=== PATIENT | female | born 1995 | race Caucasian/White ===

== ENCOUNTER → 2017-04-06 18:20 | Emergency (ER) | payer OTHER ==
[~2017-04-06 18:20] MED LIST: Ibuprofen TAB* 600 MG PO ONE
[2017-04-06 18:36] VITALS: BP 99/65
--- NOTE | 2017-04-14 15:10 | ED ---
Bridger Ventura Angela, scribed for Michael Clayton MD on 04/06/17 at 1914 . Throat Pain/Nasal Congestion - HPI Summary HPI Summary: This pt is a 21 y/o female presenting to [facility] with 2 days of sore throat. She rates her pain 3 out of 10 in severity. Pt denies fever, rhinorrhea, or any other symptoms. No PMHx of strep throat, URI. - History of Current Complaint Chief Complaint: EDThroatPain Time Seen by Provider: 04/06/17 18:25 Hx Obtained From: Patient Onset/Duration: Lasting Days Severity: Mild - 3 out of 10 in severity. Associated Signs And Symptoms: Negative: Wheezing, Hoarseness, Nasal Discharge Cough: None - Allergies/Home Medications Allergies/Adverse Reactions: Allergies Allergy/AdvReac Type Severity Reaction Status Date / Time Cefaclor [From Ceclor] Allergy Swelling Verified 04/29/16 16:23 Cefprozil [From Cefzil] Allergy Swelling Verified 04/29/16 16:23 Erythromycin Allergy Swelling Verified 04/29/16 16:23 Vancomycin Allergy Rash Verified 04/29/16 16:23 PMH/Surg Hx/FS Hx/Imm Hx Endocrine/Hematology History: Denies: Hx Anticoagulant Therapy, Hx Diabetes, Hx Thyroid Disease Cardiovascular History: Denies: Hx Hypercholesterolemia, Hx Hypertension, Hx Pacemaker/ICD, Hx Peripheral Vascular Disease Respiratory History: Denies: Hx Asthma, Hx Chronic Obstructive Pulmonary Disease (COPD) History: Denies: Hx Renal Disease Musculoskeletal History: Denies: Hx Arthritis, Hx Rheumatoid Arthritis, Hx Osteoporosis Sensory History: Denies: Hx Cataracts, Hx Contacts or Glasses, Hx Glaucoma Opthamlomology History: Denies: Hx Cataracts, Hx Contacts or Glasses, Hx Glaucoma Neurological History: Denies: Hx Dementia, Hx Seizures Psychiatric History: Denies: Hx Anxiety, Hx Depression, Hx Substance Abuse Infectious Disease History: No Infectious Disease History: Denies: Hx Hepatitis, Hx Human Immunodeficiency Virus (HIV), Traveled Outside the [place] in Last 30 Days - Family History Known Family History: Positive: None - Social History Alcohol Use: Occasionally Substance Use Type: Reports: None Hx Tobacco Use: No Smoking Status (MU): Never Smoked Tobacco Review of Systems Negative: Fever, Chills Negative: Erythema Positive: Sore Throat Negative: Chest Pain Negative: Shortness Of Breath, Cough Negative: Abdominal Pain, Vomiting, Nausea Negative: dysuria, hematuria Negative: Myalgia, Edema Negative: Rash Neurological: Other - NEGATIVE: dizziness. All Other Systems Reviewed And Are Negative: Yes Physical Exam - Summary Physical Exam Summary: Constitutional: Well-developed, Well-nourished, Alert. (-) Distressed Skin: Warm, Dry HENT: Normocephalic; Atraumatic. Exudate on the right tonsil. Eyes: Conjunctiva normal Neck: Musculoskeletal ROM normal neck. (-) JVD, (-) Stridor, (-) Tracheal deviation Cardio: Rhythm regular, rate normal, Heart sounds normal; Intact distal pulses; The pedal pulses are 2+ and symmetric. Radial pulses are 2+ and symmetric. (-) Murmur Pulmonary/Chest wall: Effort normal. (-) Respiratory distress, (-) Wheezes, (-) Rales Abd: Soft, (-) Tenderness, (-) Distension, (-) Guarding, (-) Rebound Musculoskeletal: (-) Edema Lymph: (-) Cervical adenopathy Neuro: Alert, Oriented x3 Psych: Mood and affect Normal Triage Information Reviewed: Yes Vital Signs On Initial Exam: Initial Vitals Temp Pulse Resp BP Pulse Ox 98.6 F 70 18 99/65 98 04/06/17 18:31 04/06/17 18:31 04/06/17 18:31 04/06/17 18:31 04/06/17 18:31 Vital Signs Reviewed: Yes Diagnostics - Vital Signs Vital Signs Temp Pulse Resp BP Pulse Ox 04/06/17 18:31 98.6 F 70 18 99/65 98 - Laboratory Lab Results: Lab Results 04/06/17 Range/Units 18:34 Group A Strep Rapid Negative (Negative) Lab Statement: Any lab studies that have been ordered have been reviewed, and results considered in the medical decision making process. EENT Course/Dx - Course Course Of Treatment: Pt will be discharged with dx of pharyngitis, pending cultures. - Diagnoses Provider Diagnoses: Pharyngitis Discharge - Discharge Plan Condition: Stable Disposition: HOME Patient Education Materials: Pharyngitis (ED) Forms: *Work Release Referrals: Dk Adams MD [Primary Care Provider] - Additional Instructions: Please follow up with your primary care provider. RETURN TO THE EMERGENCY DEPARTMENT FOR CHANGING OR WORSENING SYMPTOMS. The documentation as recorded by the Bridger guzman Angela accurately reflects the service I personally performed and the decisions made by me, Michael Clayton MD.
== END | disposition home or self-care (01) ==
LOC: ED 18:20
DX: J02.9 Acute pharyngitis, unspecified (principal)
CPT/HCPCS: 87651; 99281

== ENCOUNTER 2018-02-18 13:48 | Emergency (ER) | payer OTHER ==
[2018-02-18 14:42] VITALS: BP 123/72
== END 2018-02-18 15:37 | disposition left against medical advice (07) ==
LOC: UCCORT 13:48
DX: J39.2 Other diseases of pharynx (principal); Z53.21 Procedure and treatment not carried out due to patient leaving prior to being seen by health care provider
CPT/HCPCS: 87651

== ENCOUNTER 2018-07-04 04:48 | Emergency (ER) | payer OTHER ==
[2018-07-04] MEDS ORDERED: Ketorolac INJ* 30 MG/ML 1 ML VIAL IV ONE (05:00)
[2018-07-04] MEDS ORDERED: NS 0.9% 1000 ML* 1,000 ML IV ONE (05:00)
--- NOTE | 2018-07-04 05:00 | ED ---
GI/ HPI - HPI Summary HPI Summary: This patient is a 23 year old F presenting to [facility] accompanied by her mother with a chief complaint of bilateral flank pain. Pt states she woke up this morning at 0100 with "cold sweats" and pain. The patient rates the pain 4/10 in severity. Patient reports dysuria, vaginal bleeding, and hematuria. Patient denies n/v, fever, and chills. She states she is on BC and is not supposed to begin her menstural cycle for two weeks. - History of Current Complaint Chief Complaint: EDUrogenitalProblems Time Seen by Provider: 07/04/18 04:51 Stated Complaint: FLANK PAIN Hx Obtained From: Patient Hx Last Menstrual Period: 3 weeks Onset/Duration: Started Hours Ago, Still Present Timing: Constant, Lasting Hours Severity: Moderate Current Severity: Moderate Pain Intensity: 4 Location of Pain: Flank Pain Radiates to: Flank Associated Signs and Symptoms: Positive: Flank Pain. Negative: Fever, Chills - Allergy/Home Medications Allergies/Adverse Reactions: Allergies Allergy/AdvReac Type Severity Reaction Status Date / Time cefprozil Allergy Severe Swelling Verified 07/04/18 04:53 vancomycin Allergy Intermediate Rash Verified 07/04/18 04:53 cefaclor [From Ceclor] Allergy Swelling Verified 07/04/18 04:53 erythromycin base Allergy Swelling Verified 07/04/18 04:53 PMH/Surg Hx/FS Hx/Imm Hx Endocrine/Hematology History: Denies: Hx Anticoagulant Therapy, Hx Diabetes, Hx Thyroid Disease Cardiovascular History: Denies: Hx Hypercholesterolemia, Hx Hypertension, Hx Pacemaker/ICD, Hx Peripheral Vascular Disease Respiratory History: Denies: Hx Asthma, Hx Chronic Obstructive Pulmonary Disease (COPD) History: Denies: Hx Renal Disease Musculoskeletal History: Denies: Hx Arthritis, Hx Rheumatoid Arthritis, Hx Osteoporosis Sensory History: Denies: Hx Cataracts, Hx Contacts or Glasses, Hx Glaucoma Opthamlomology History: Denies: Hx Cataracts, Hx Contacts or Glasses, Hx Glaucoma Neurological History: Denies: Hx Dementia, Hx Seizures Psychiatric History: Reports: Hx Anxiety, Hx Attention Deficit Hyperactivity Disorder Denies: Hx Depression, Hx Substance Abuse Infectious Disease History: No Infectious Disease History: Denies: Hx Hepatitis, Hx Human Immunodeficiency Virus (HIV), Traveled Outside the [place] in Last 30 Days - Family History Known Family History: Negative: Cardiac Disease, Diabetes, Renal Disease, Respiratory Disease - Social History Alcohol Use: Weekly Substance Use Type: Reports: None Hx Tobacco Use: No Smoking Status (MU): Light Every Day Tobacco Smoker Review of Systems Negative: Fever, Chills Negative: Vomiting, Nausea Genitourinary: Other - vaginal bleeding Positive: dysuria, flank pain, hematuria All Other Systems Reviewed And Are Negative: Yes Physical Exam - Summary Physical Exam Summary: VITAL SIGNS: Reviewed. GENERAL: Patient is a well-developed and nourished female who is lying comfortable in the stretcher. Patient is not in any acute respiratory distress. HEAD AND FACE: No signs of trauma. No ecchymosis, hematomas or skull depressions. No sinus tenderness. EYES: PERRLA, EOMI x 2, No injected conjunctiva, no nystagmus. EARS: Hearing grossly intact. Ear canals and tympanic membranes are within normal limits. MOUTH: Oropharynx within normal limits. NECK: Supple, trachea is midline, no adenopathy, no JVD, no carotid bruit, no c- spine tenderness, neck with full ROM. CHEST: Symmetric, no tenderness at palpation LUNGS: Clear to auscultation bilaterally. No wheezing or crackles. CVS: Regular rate and rhythm, S1 and S2 present, no murmurs or gallops appreciated. ABDOMEN: Soft, non-tender. No signs of distention. No rebound no guarding, and no masses palpated. Bowel sounds are normal. Back: mild right sided CVA is TTP EXTREMITIES: FROM in all major joints, no edema, no cyanosis or clubbing. NEURO: Alert and oriented x 3. No acute neurological deficits. Speech is normal and follows commands. SKIN: Dry and warm Triage Information Reviewed: Yes Vital Signs On Initial Exam: Initial Vitals Temp Pulse Resp BP Pulse Ox 98.7 F 79 18 121/78 99 07/04/18 04:50 07/04/18 04:50 07/04/18 04:50 07/04/18 04:50 07/04/18 04:50 Vital Signs Reviewed: Yes Diagnostics - Vital Signs Vital Signs Temp Pulse Resp BP Pulse Ox 07/04/18 04:50 98.7 F 79 18 121/78 99 - Laboratory Result Diagrams: 07/04/18 05:11 07/04/18 05:11 Lab Statement: Any lab studies that have been ordered have been reviewed, and results considered in the medical decision making process. Re-Evaluation - Re-Evaluation First Eval Re-Evaluation Time: 06:07 Change: Improved Comment: The pt is feeling better and she abx for the UTI. US is ordered. GIGU Course/Dx - Course Assessment/Plan: CT ABD/Pelvis reveals, per radiologist,. 1. There is a cystic structure noted in the pelvis measuring approximately 3.9. x 2.4 CM, findings may represent adnexal cyst. Pelvic sonography may be. performed for further evaluation. 2. There is no evidence of nephrolithiasis or hydronephrosis. Bloodwork obtained. In the ED course the patient was given toradol, IV fluids, and levofloxacin. The patient will be signed out to Dr. Velasquez awaiting US. - Diagnoses Provider Diagnoses: UTI (urinary tract infection), Ovarian cyst Discharge - Sign-Out/Discharge Documenting (check all that apply): Sign-Out Patient Signing out patient TO: Evan Velasquez - Discharge Plan Referrals: Dk Adams MD [Primary Care Provider] - - Attestation Statements Document Initiated by Scribe: Yes Documenting Scribe: Live Tobar Provider For Whom Scribe is Documenting (Include Credential): Blane Zhou MD Scribe Attestation: Live Ventura, scribed for Blane Zhou MD on 07/04/18 at 0646.
[2018-07-04 05:21] LABS: ABS Basophils 0.1 10^3/ul (0-0.2); ABS Eosinophils 0.3 10^3/ul (0-0.6); ABS Lymphocytes 2.3 10^3/ul (1.0-4.8); ABS Monocytes 0.6 10^3/ul (0-0.8); ABS Nucleated RBC 0 10^3/ul; Eosinophil % 2.8 % (0-6); Hematocrit 37 % (35-47); Hemoglobin 12.6 g/dl (12.0-16.0); Lymphocyte % 25.4 % (25-47); Mean Corpuscular HGB Conc 34 g/dl (31-36); Mean Corpuscular Hemoglobin 32 pg (27-31); Mean Corpuscular Volume 94 fL (80-97); Nucleated Red Blood Cells % 0; Platelet Count 279 10^3/ul (150-450); Red Blood Count 3.96 10^6/ul (4.00-5.40); Red Cell Distribution Width 13 % (10.5-15); White Blood Count 9.3 10^3/ul (3.5-10.8)
[2018-07-04 05:27] LABS: Urine Appearance Turbid; Urine Blood 3+ (Negative); Urine Color Amber; Urine Ketones Negative (Negative); Urine Protein 2+(100 mg/dL) (Negative); Urine Red Blood Cell 3+(>10/hpf) (Absent); Urine Specific Gravity 1.027 (1.010-1.030); Urine Urobilinogen Negative (Negative); Urine White Blood Cell 3+(>20/hpf) (Absent)
[2018-07-04 05:36] LABS: INR 0.82 (0.77-1.02)
[2018-07-04 05:40] LABS: EGFR Non-African American 79.3 (>60)
[2018-07-04] MEDS ORDERED: Levofloxacin 500 MG IVPREMIX(* 500 MG/100 ML BAG IVPB ONE (06:03)
--- NOTE | 2018-07-04 07:20 | ED ---
Progress - Progress Note Progress Note: This pt was signed out by Dr. Zhou at shift change, pending disposition, awaiting US transvaginal. Transvaginal US, as read by radiologist IMPRESSION: There is a 4.1 cm minimally cyst in the posterior pelvis on the right side correlating with the prior CT abnormality. Recommend a follow-up pelvic ultrasound in 1-2 months time to demonstrate stability. Dr. Velasquez has reviewed this report. Re-Evaluation - Re-Evaluation First Eval Re-Evaluation Time: 07:42 Comment: Pt currently getting an ultrasound. Second Eval Re-Evaluation Time: 08:49 Comment: I reviewed the US results with the pt. She will be discharged home with follow up from [facility]. Course/Dx - Course Course Of Treatment: This patient is a 23-year-old female who was signed out by Dr. Zhou. He reports that the patient presented with bilaterl flank pain. Abdominal pain and pelvic CT scan shows a complex ovarian cyst. Therefore, he decided to do pelvic ultrasound which is pending at this time. Pelvic U/S IMPRESSION: THERE IS A 4.1 CM MINIMALLY CYST IN THE POSTERIOR PELVIS ON THE RIGHT SIDE CORRELATING WITH THE PRIOR CT ABNORMALITY. RECOMMEND A FOLLOW-UP PELVIC ULTRASOUND IN 1-2 MONTHS TIME TO DEMONSTRATE STABILITY. As per Dr. Zhou s recommendation the patient will be discharged home with follow-up from [facility] and with a prescription for Levaquin 500 mg daily for 5 days. I discussed all the findings and test results with the patient. Patient was instructed to return to the emergency room immediately if any of the symptoms return or worsens. Plan of care was discussed with the patient and understands and agrees. All questions were answered at patient satisfaction. There were no further complaints or concerns. Lung exam before discharge: CTA B/L. Good air exchange. No wheezing or crackles heard. CVS: S1 and S2 present. No murmurs appreciated. Patient is alert and oriented x 3. Patient is hemodynamically stable. Patient will be discharged home with follow up PCP in the next 2-3 days. - Diagnoses Provider Diagnoses: UTI (urinary tract infection), Ovarian cyst Discharge - Sign-Out/Discharge Documenting (check all that apply): Patient Departure - Discharge home, Receiving Sign-Out Receiving patient FROM: Blane Zhou - Discharge Plan Condition: Stable Disposition: HOME Prescriptions: Levofloxacin TAB* [Levaquin TAB*] 500 mg PO DAILY #5 tab Patient Education Materials: Ovarian Cyst (ED), Urinary Tract Infection in Women (ED) Forms: *Work Release Referrals: Dk Adams MD [Primary Care Provider] - Additional Instructions: Please follow up with Dr. Allen, [facility]. FOLLOW UP WITH YOUR PRIMARY CARE PROVIDER WITHIN ONE WEEK. RETURN TO THE ED FOR ANY NEW OR WORSENING SYMPTOMS. - Billing Disposition and Condition Condition: STABLE Disposition: Home - Attestation Statements Document Initiated by Scribe: Yes Documenting Scribe: Jessica Sparks Provider For Whom Scribe is Documenting (Include Credential): Evan Velasquez MD Scribe Attestation: Jessica Ventura, scribed for Evan Velasquez MD on 07/04/18 at 1831. Scribe Documentation Reviewed: Yes Provider Attestation: The documentation as recorded by the Jessica guzman accurately reflects the service I personally performed and the decisions made by me, Evan Velasquez MD
[2018-07-04 09:07] VITALS: BP 133/62
== END 2018-07-04 09:07 | disposition home or self-care (01) ==
LOC: ED 04:48
DX: N39.0 Urinary tract infection, site not specified (principal); N83.209 Unspecified ovarian cyst, unspecified side; Z72.0 Tobacco use
CPT/HCPCS: 36415; 74176; 76830; 80053; 81003; 81015; 83735; 84702; 85025; 85610; 85730; 86140; 87086; 96361; 96374; 96375; 99283; J1885; J1956

== ENCOUNTER 2019-02-21 01:14 | Emergency (ER) | payer OTHER ==
--- NOTE | 2019-02-21 01:29 | ED ---
GI/ HPI - HPI Summary HPI Summary: This patient is a 23 year old female presenting to [facility] with a chief complaint of right pelvic/groin pain since one hour ago. The patient has a Hx of ovarian cysts. She reports nausea and denies vomiting, fever, diarrhea, and dysuria. The patients LNMP was last week. The pain gets worse when she moves. - History of Current Complaint Chief Complaint: EDAbdPain Time Seen by Provider: 02/21/19 01:24 Stated Complaint: PELVIC PAIN PER PT Hx Obtained From: Patient Hx Last Menstrual Period: 3 weeks Onset/Duration: Started Hours Ago Timing: Constant Severity: Moderate Current Severity: Moderate Pain Intensity: 8 Location of Pain: Groin - Allergy/Home Medications Allergies/Adverse Reactions: Allergies Allergy/AdvReac Type Severity Reaction Status Date / Time cefprozil Allergy Severe Swelling Verified 02/21/19 01:20 vancomycin Allergy Intermediate Rash Verified 02/21/19 01:20 cefaclor [From Ceclor] Allergy Swelling Verified 02/21/19 01:20 erythromycin base Allergy Swelling Verified 02/21/19 01:20 Home Medications: Home Medications Ethinyl Estradiol/Drospirenone [Drospirenone-Ee 3-0.03 mg Tab] 1 tab PO DAILY [History Confirmed 02/21/19] PMH/Surg Hx/FS Hx/Imm Hx Endocrine/Hematology History: Denies: Hx Anticoagulant Therapy, Hx Diabetes, Hx Thyroid Disease Cardiovascular History: Denies: Hx Hypercholesterolemia, Hx Hypertension, Hx Pacemaker/ICD, Hx Peripheral Vascular Disease Respiratory History: Denies: Hx Asthma, Hx Chronic Obstructive Pulmonary Disease (COPD) History: Denies: Hx Renal Disease Musculoskeletal History: Denies: Hx Arthritis, Hx Rheumatoid Arthritis, Hx Osteoporosis Sensory History: Denies: Hx Cataracts, Hx Contacts or Glasses, Hx Glaucoma Opthamlomology History: Denies: Hx Cataracts, Hx Contacts or Glasses, Hx Glaucoma Neurological History: Denies: Hx Dementia, Hx Seizures Psychiatric History: Reports: Hx Anxiety, Hx Attention Deficit Hyperactivity Disorder Denies: Hx Depression, Hx Substance Abuse Infectious Disease History: No Infectious Disease History: Denies: Hx Hepatitis, Hx Human Immunodeficiency Virus (HIV), Traveled Outside the [place] in Last 30 Days - Family History Known Family History: Negative: Cardiac Disease, Diabetes, Renal Disease, Respiratory Disease - Social History Alcohol Use: Weekly Substance Use Type: Reports: None Hx Tobacco Use: No Smoking Status (MU): Light Every Day Tobacco Smoker Review of Systems Negative: Fever Positive: Nausea. Negative: Vomiting, Diarrhea Positive: other - Pelvic/groin pain. Negative: dysuria All Other Systems Reviewed And Are Negative: Yes Physical Exam - Summary Physical Exam Summary: VITAL SIGNS: Reviewed. GENERAL: Patient is a well-developed and nourished FEMALE who is lying comfortable in the stretcher. Patient is not in any acute respiratory distress. HEAD AND FACE: No signs of trauma. No ecchymosis, hematomas or skull depressions. No sinus tenderness. EYES: PERRLA, EOMI x 2, No injected conjunctiva, no nystagmus. EARS: Hearing grossly intact. Ear canals and tympanic membranes are within normal limits. MOUTH: Oropharynx within normal limits. NECK: Supple, trachea is midline, no adenopathy, no JVD, no carotid bruit, no c- spine tenderness, neck with full ROM CHEST: Symmetric, no tenderness at palpation LUNGS: Clear to auscultation bilaterally. No wheezing or crackles. CVS: Regular rate and rhythm, S1 and S2 present, no murmurs or gallops appreciated. ABDOMEN: Soft, non-tender. No signs of distention. No rebound no guarding, and no masses palpated. Bowel sounds are normal. Right pelvic tenderness. EXTREMITIES: FROM in all major joints, no edema, no cyanosis or clubbing. NEURO: Alert and oriented x 3. No acute neurological deficits. Speech is normal and follows commands. SKIN: Dry and warm Triage Information Reviewed: Yes Vital Signs On Initial Exam: Initial Vitals Temp Pulse Resp BP Pulse Ox 98.8 F 88 20 157/114 100 02/21/19 01:15 02/21/19 01:15 02/21/19 01:15 02/21/19 01:15 02/21/19 01:15 Vital Signs Reviewed: Yes Diagnostics - Vital Signs Vital Signs Temp Pulse Resp BP Pulse Ox 02/21/19 01:15 98.8 F 88 20 157/114 100 - Laboratory Result Diagrams: 02/21/19 01:49 02/21/19 01:49 Lab Statement: Any lab studies that have been ordered have been reviewed, and results considered in the medical decision making process. - Ultrasound No standard instances Ultrasound Interpretation Completed By: Radiologist Summary of Ultrasound Findings: US Transvaginal: 1. As previously seen, tehre is a simple cystic lesion in the posterior pelvic cul-de-sac that appears to be associated with the right ovary and measures a maximum of 3.2 cm on the current exam and previously measured a maximum of 4.1 cm. 2. No signs of ovarian torsion. ED Provider has reviewed this report. GIGU Course/Dx - Course Course Of Treatment: This patient is a 23 year old female presenting to [facility] with a chief complaint of right pelvic/groin pain since one hour ago. Transvaginal US revealed US Transvaginal: 1. As previously seen, tehre is a simple cystic lesion in the posterior pelvic cul-de-sac that appears to be associated with the right ovary and measures a maximum of 3.2 cm on the current exam and previously measured a maximum of 4.1 cm. 2. No signs of ovarian torsion. A plan for management and discharge was discussed with the patient and she was agreeable with this plan. - Diagnoses Provider Diagnoses: Ovarian cyst, right Discharge - Sign-Out/Discharge Documenting (check all that apply): Patient Departure - Discharge Patient Received Moderate/Deep Sedation with Procedure: No - Discharge Plan Condition: Stable Disposition: HOME Patient Education Materials: Ovarian Cyst (ED) Referrals: Dk Adams MD [Primary Care Provider] - Additional Instructions: Return to ED with any new or worsening symptoms. - Attestation Statements Document Initiated by Scribe: Yes Documenting Scribe: Robert Chavez Provider For Whom Nasimibelzbieta is Documenting (Include Credential): Blane Zhou MD Scribe Attestation: IRobert, scribed for Blane Zhou MD on 02/21/19 at 0349. Status of Scribe Document: Ready
[2019-02-21] MEDS ORDERED: NS 0.9% 1000 ML** 1,000 ML IV ONE (01:36)
[2019-02-21] MEDS ORDERED: Ketorolac INJ* 15 MG/ML 1 ML VIAL IV PUSH ONE (01:37)
[2019-02-21] MEDS ORDERED: Metoclopramide IV* 5 MG/ML 2 ML VIAL IV SLOW PU ONE (01:37)
[2019-02-21] MEDS ORDERED: Morphine 4 MG/ML VIAL (1 ml) 4 MG/ML VIAL IV ONE (01:37)
[2019-02-21 01:57] LABS: ABS Basophils 0.1 10^3/ul (0-0.2); ABS Eosinophils 0.2 10^3/ul (0-0.6); ABS Lymphocytes 2.5 10^3/ul (1.0-4.8); ABS Monocytes 0.5 10^3/ul (0-0.8); ABS Neutrophils 6.8 10^3/ul (1.5-7.7); Eosinophil % 1.7 %; Hematocrit 38 % (35-47); Hemoglobin 12.8 g/dL (12.0-16.0); Lymphocyte % 24.6 %; Mean Corpuscular HGB Conc 34 g/dL (31-36); Mean Corpuscular Hemoglobin 32 pg (27-31); Mean Corpuscular Volume 94 fL (80-97); Mean Platelet Volume 7.5 fL (7.4-10.4); Platelet Count 265 10^3/uL (150-450); Red Blood Count 4.03 10^6 /uL (3.70-4.87); Red Cell Distribution Width 13 % (10-15)
[2019-02-21 02:17] LABS: ALT 19 U/L (7-52); AST 19 U/L (13-39); Albumin 3.9 g/dL (3.2-5.2); Albumin/Globulin Ratio 1.3 (1-3); Alkaline Phosphatase 44 U/L (34-104); Anion Gap 10 mmol/L (2-11); BUN/Creatinine Ratio 17.3 (8-20); Blood Urea Nitrogen 14 mg/dL (6-24); C Reactive Protein 3.09 mg/L (<8.01); CO2 Carbon Dioxide 22 mmol/L (22-32); Calcium 9.2 mg/dL (8.6-10.3); Chloride 106 mmol/L (101-111); EGFR African American 104.2 (>60); EGFR Non-African American 86.2 (>60); Globulin 2.9 g/dL (2-4); Glucose 111 mg/dL (70-100); Potassium 3.4 mmol/L (3.5-5.0); Sodium 138 mmol/L (135-145); Total Protein 6.8 g/dL (6.4-8.9)
[2019-02-21 02:24] LABS: HCG Pregnancy < 0.60 mIU/mL
[2019-02-21 04:08] VITALS: BP 103/59
== END 2019-02-21 04:08 | disposition home or self-care (01) ==
LOC: ED 01:14
DX: N83.201 Unspecified ovarian cyst, right side (principal); F17.210 Nicotine dependence, cigarettes, uncomplicated; Z88.1 Allergy status to other antibiotic agents
CPT/HCPCS: 36415; 76830; 80053; 83605; 84702; 85025; 86140; 96361; 96374; 96375; 99283; J1885; J2270; J2765

== ENCOUNTER 2021-12-24 17:51 | Inpatient (IN) ==
[2021-12-24] MEDS ORDERED: Dinoprostone 10 MG VAG.SUPP VAGINAL ONE (18:00)
[2021-12-24] MEDS ORDERED: Lactated Ringers 1000 ml BAG 1,000 ML IV ONE ×2 (18:00→21:30)
[2021-12-24] MEDS ORDERED: Buffered Lidocaine 1% SYRIN 1 ml INTRADERM ONE (18:00)
[2021-12-24 19:31] LABS: Urine Benzodiazepine Screen None Detected (None Detect); Urine Cannabinoids Screen None Detected (None Detect); Urine Opiates Screen None Detected (None Detect)
[2021-12-24 20:23] LABS: ABS Basophils 0.1 10^3/ul (0-0.2); ABS Eosinophils 0.2 10^3/ul (0-0.6); ABS Lymphocytes 2.3 10^3/ul (1.0-4.8); ABS Monocytes 0.9 10^3/ul (0-0.8); ABS Neutrophils 9.7 10^3/ul (1.5-7.7); Eosinophil % 1.2 %; Hematocrit 35 % (35-47); Hemoglobin 11.5 g/dL (12.0-16.0); Lymphocyte % 17.5 %; Mean Corpuscular HGB Conc 33 g/dL (31-36); Mean Corpuscular Hemoglobin 29 pg (27-31); Mean Corpuscular Volume 89 fL (80-97); Mean Platelet Volume 8.5 fL (7.4-10.4); Platelet Count 271 10^3/uL (150-450); Red Blood Count 3.96 10^6 /uL (3.70-4.87); Red Cell Distribution Width 14 % (10-15); White Blood Count 13.1 10^3/uL (3.5-10.8)
[2021-12-24] MEDS ORDERED: OBEPIDURAL (200 ML) 200 ML EPIDURAL ONE (20:30)
[2021-12-24 21:05] LABS: Urine Appearance Clear; Urine Bilirubin Negative (Negative); Urine Blood Negative (Negative); Urine Color Straw; Urine Glucose Negative (Negative); Urine Ketones Negative (Negative); Urine Nitrite Negative (Negative); Urine Protein Negative (Negative); Urine Specific Gravity 1.004 (1.002-1.030); Urine Urobilinogen Negative (Negative)
[2021-12-24] MEDS ORDERED: Phenylephrine 40 mcg/mL 10mL (400mcg) SYRINGE IV PUSH PRN ×2 (21:30)
[2021-12-24] MEDS ORDERED: Sodium Citrate/Citric Acid LIQ 15 ML UDC PO PRN (21:30)
[2021-12-24] MEDS ORDERED: Lactated Ringers 1000 ml BAG 500 ML IV PRN ×2 (21:30)
[2021-12-24] MEDS ORDERED: EPHEDrine (Pressors) 50 MG/ML VIAL IV PUSH PRN ×2 (21:30)
[2021-12-24] MEDS ORDERED: OBEPIDURAL (200 ML) 200 ML EPIDURAL SCH (22:00)
[2021-12-24] MEDS ORDERED: Lactated Ringers 1000 ml BAG 1,000 ML IV SCH (22:00)
[2021-12-24] MEDS ORDERED: Oxytocin in LR 20 UNITS/1,000 ML BAG IVPB SCH (23:00)
[2021-12-25] MEDS ORDERED: Witch Hazel PAD JAR TOPICAL PRN (11:27)
[2021-12-25] MEDS ORDERED: Glycerin ADULT 2.4 gm SUPP PR PRN (11:27)
[2021-12-25] MEDS: Dibucaine 1% OINT 28.35 GM TUBE PR PRN (20:12)
[2021-12-25] MEDS ORDERED: Lidocaine 1% MPF 5 ML VIAL ONE (21:10)
[2021-12-26 07:21] LABS: ABS Basophils 0.1 10^3/ul (0-0.2); ABS Eosinophils 0.3 10^3/ul (0-0.6); ABS Lymphocytes 2.4 10^3/ul (1.0-4.8); ABS Monocytes 0.8 10^3/ul (0-0.8); Eosinophil % 1.7 %; Hematocrit 29 % (35-47); Hemoglobin 9.5 g/dL (12.0-16.0); Lymphocyte % 14.5 %; Mean Corpuscular HGB Conc 33 g/dL (31-36); Mean Corpuscular Hemoglobin 30 pg (27-31); Mean Corpuscular Volume 90 fL (80-97); Mean Platelet Volume 8.3 fL (7.4-10.4); Platelet Count 252 10^3/uL (150-450); Red Blood Count 3.17 10^6 /uL (3.70-4.87); Red Cell Distribution Width 14 % (10-15); White Blood Count 16.6 10^3/uL (3.5-10.8)
[2021-12-26] MEDS: Amphetamine/Dextroam ER 10(NF) 10 mg CAP.ER PO SCH (08:53)
[2021-12-27] MEDS: Amphetamine/Dextroam ER 10(NF) 10 mg CAP.ER PO SCH (09:06)
[2021-12-27 09:29] VITALS: BP 133/69
[2021-12-27] MEDS: Dibucaine 1% OINT 28.35 GM TUBE PR PRN (10:22)
== END 2021-12-27 13:48 | disposition home or self-care (01) | DRG 560 ==
LOC: MCHOBOUT 17:51 → MCHOB 19:17
PROVIDERS: ADMIT Advanced Practice Midwife; ATTEND Midwife